=== PATIENT | female | born 1930 | race Caucasian/White ===

== ENCOUNTER → 2018-02-04 07:35 | Outpatient (CLI) | payer MEDICARE, OTHER | END | disposition home or self-care (01) | LOC: D.MRI 07:35 | DX: R05 Cough (principal) ==

== ENCOUNTER → 2018-10-02 09:09 | Outpatient (CLI) | payer MEDICARE, OTHER ==
--- NOTE | 2018-10-07 11:18 | ST ---
PATIENT:JITEDNRA BRUMFIELD MEDICAL RECORD: [id number] SEX: F LOCATION:[facility] ORDER #: ADMISSION DATE: 10/02/18 AGE OF PATIENT: 87 REFERRING PHYSICIAN: INTERPRETING PHYSICIAN: WALTER HIRSCH MD DATE OF SERVICE: 10/02/2018 PROCEDURE: Nuclear stress test. INDICATION: Angina. Family history of coronary artery disease, tachycardia, no past cardiac history. The patient was exercised on standard Lexiscan protocol with 31 mCi of sestamibi injected at peak stress, 10 mCi used previously for rest images. FINDINGS: Gated SPECT reveals a preserved ejection fraction at 58%. However, there is decreased thickening and brightening throughout the anteroapical segment and there is mild LV dilatation. SPECT imaging Cardiolite was used as myocardial perfusion agent. There is a large fixed perfusion defect anteroapically compatible with a previous anteroapical myocardial infarction. The remaining segments are with homogeneous uptake at rest and stress. OVERALL IMPRESSION: This is an abnormal nuclear stress test. A large area of fixed perfusion defect anteroapically compatible with previous anteroapical myocardial infarction in this patient with ongoing symptomatology and no cardiac history. Current scan suggests presence of hemodynamically significant coronary artery disease as well as a previous myocardial infarction. TRANSINT:[id number] Voice Confirmation ID: [id number] DOCUMENT ID: [id number] WALTER HIRSCH MD at 1118 CC: [id number] DICTATION DATE: 10/03/18 1418 INSURANCE CLAIMS REPRESENTATIVE: 10/03/18 2352 DEP CLI 10/02/[address] [address]
== END | disposition home or self-care (01) ==
LOC: D.HCCARDIO 09:09
DX: R07.9 Chest pain, unspecified (principal)

== ENCOUNTER 2018-10-14 07:59 | Outpatient (CLI) | payer MEDICARE, OTHER ==
[~2018-10-14] VITALS: Ht 165.1 cm; Wt 47.7 kg
--- NOTE | ~2018-10-14 | HEMODYNAMI ---
PATIENT:JITENDRA BRUMFIELD MEDICAL RECORD: [id number] : 34 LOCATION:[facility] ADMISSION DATE: 10/14/18 Generatedon:10/14/20189:45 Patient name: JITENDRA BRUMFIELD Patient #: [id number] SSN: : [id number] Date of study: 10/14/2018 Page: Of Hemodynamic Procedure Report Patient Data Patient Demographics Procedure consent was obtained First Name: JITENDRA Gender: Female Last Name: OCTAVIANO : 1930 Patient #: [id number] Age: 87 year(s) Race: Unknown Additional ID: [id number] Contact details Address: [address] [place] [address] State: [place] City: [facility] Zip code: [address] Admission Admission Data Admission Date: 10/14/2018 Admission Time: 7:59 Procedure Procedure Types Cath Procedure Diagnostic Procedure LHC LHC w/Coronaries FFR/IVUS Intra-Coronary IVUS Initial Sedation Charges Moderate Sedation up to 15 minutes PCI Procedure Coronary Stent Coronary Stent Initial x2 Procedure Description Procedure Date Procedure Date: 10/14/2018 Procedure Start Time: 9:15 Procedure End Time: 9:40 Procedure Staff Name Function Jose Coulter MD Performing Physician Maki Weber RT Monitor Hector Hernández RT Scrub Mitchell Lucio RN Nurse Procedure Data Cath Procedure Fluoroscopy Diagnostic fluoroscopy Total fluoroscopy Time: 6.5 time: 6.5 min min Diagnostic fluoroscopy Total fluoroscopy dose: 523 dose: 523 mGy mGy Contrast Material Contrast Material Type Amount (ml) Isovue 300 121 Entry Location Entry Primary Successful Side Size Upsize Upsize Entry Closure Anaya ccessful Closure Location (Fr) 1 (Fr) 2 (Fr) Remarks Device Remarks Radial Right 6 Fr Mechanical artery Short Compression Femoral Right 5 Fr 6 Fr Exoseal artery Short Estimated blood loss: 5 ml Diagnostic catheters Device Type Used For End Catheter Placement DIAGNOSTIC [place] 110cm 5 Multi-vessel Fr catheter ([id number]) Angiography Procedure Complications No complications Procedure Medications Medication Administration Route Dosage 0.9% NaCl I.V. 100 ml/hr Oxygen etCO2 Nasal cannula 2 l/min Heparin Flush Bag added to field 2 bags (1000units/500ml NS) Lidocaine 2% added to field 20 Radial Cocktail added to field 1 syringe (Verapomil 2mg/Nitro 400mcg/Heparin 1500units) Versed I.V. 1 mg Fentanyl I.V. 50 mcg Benadryl I.V. 50 mg Radial Cocktail I.A. 1 syringe (Verapomil 2mg/Nitro 400mcg/Heparin 1500units) Heparin Bolus I.V. 4000 units Integrilin (Bolus I.V. 4.5 ml 2mg/ml) Integrilin (Bolus wasted 5.5 ml 2mg/ml) Plavix P.O. 600 mg Hemodynamics Rest Heart Rate: 76 (bpm) Pressure Samples Time Site Value (mmHg) Purpose Heart Use Rate(bpm) 9:20 LV 76/25,24 Snapshot 90 Snapshots Pre Cath Intra NCS Post Cath Vital Signs Time Heart Resp SPO2 etCO2 NIBP (mmHg) Rhythm Pain Sedation Rate (ipm) (%) (mmHg) Status Level (bpm) 9:11:09 74 14 92 0 133/65(101) NSR 0 (11) 10(A) , No pain 9:15:22 78 14 89 0 123/65(102) NSR 0 (11) 10(A) , No pain 9:19:31 83 13 95 0 112/62(79) NSR 0 (11) 10(A) , No pain 9:23:39 80 13 95 0 115/55(85) NSR 0 (11) 10(A) , No pain 9:27:49 76 12 96 0 120/52(89) NSR 0 (11) 9(A) , No pain 9:32:01 76 12 96 0 122/53(100) NSR 0 (11) 9(A) , No pain 9:36:11 79 12 96 0 121/61(93) NSR 0 (11) 9(A) , No pain 9:40:19 80 15 97 0 128/64(100) NSR 0 (11) 10(A) , No pain Medications Time Medication Route Dose Verified Delivered Reason Note s Effectiveness by by 9:12:52 Benadryl I.V. 50 mg Mitchell Mitchell Per physician Naveed Lucio RN RN 9:14:35 Versed I.V. 1 mg Mitchell Mitchell for sedation Naveed Lucio RN RN 9:14:44 Fentanyl I.V. 50 mcg Mitchell Mitchell for sedation Naveed Lucio RN RN 9:16:03 0.9% NaCl I.V. 100 Mitchell Mitchell Per physician ml/hr Naveed Lucio RN RN 9:16:12 Radial Cocktail I.A. 1 Mitchell Jose for (Verapomil syringe Naveed Coulter MD vasodilation 2mg/Nitro RN 400mcg/Heparin 1500units) 9:16:12 Oxygen etCO2 2 l/min Mitchell Mitchell for low 02 sats Nasal Naveed Lucio cannula RN RN 9:16:21 Heparin Flush added 2 bags Mitchell Mitchell for local Bag to Lorigan Lorleeanna anesthetic (1000units/500ml field RN RN NS) 9:16:31 Lidocaine 2% added 20ml Mitchell Mitchell for local to vial Lorigan Lorigan anesthetic RN RN 9:16:40 Radial Cocktail added 1 Mitchell Mitchell used for (Verapomil to syringe Lorigan Naveed procedure 2mg/Nitro field MOULTON RN 400mcg/Heparin 1500units) 9:27:24 Heparin Bolus I.V. 4000 Mitchell Mitchell for units Naveed Lucio anticoagulation RN RN 9:27:48 Integrilin I.V. 4.5 ml Mitchell Mitchell for (Bolus 2mg/ml) Naveed Lucio antiplatelet RN RN therapy 9:27:58 Integrilin wasted 5.5 ml Mitchell Mitchell to sharp's (Bolus 2mg/ml) Naveed Lucio RN RN 9:40:04 Plavix P.O. 600 mg Mitchell Mitchell for Naveed Lucio antiplatelet RN RN therapy Procedure Log Time Note 8:54:36 Diagnostic Cath Status : Elective 8:54:59 Mitchell Lucio RN sent for patient. Start room use. 8:55:00 Time tracking: Regular hours (M-F 7:00 - 5:00) 8:55:05 Plan of Care:Hemodynamics will remain stable., Cardiac rhythm will remain stable., Comfort level will be maintained., Respiratory function will remain adequate., Patient/ family verbilizes understanding of procedure., Procedure tolerated without complication., Recovers from procedure without complications.. 9:00:36 Patient received from Pre/Post Procedure Room to CCL 2 Alert and oriented. Tansferred to table in Supine position. 9:00:37 Warm blankets applied, and froylan hugger turned on for patient comfort. 9:00:37 Correct patient and procedure confirmed by team. 9:00:39 Signed procedure consent form obtained from patient. 9:00:39 ECG and BP/O2 sat monitors applied to patient. 9:09:56 Vital chart was started 9:09:57 Baseline sample Acquired. 9:10:01 Rhythm: sinus rhythm 9:10:03 Full Disclosure recording started 9:10:07 H&P Date Dictated: 10/14/2018 Within 30 days and on chart., H&P Addendum completed by physician on day of procedure. (MUST COMPLETE FOR ALL OUTPATIENTS). 9:10:08 Pre-procedure instructions explained to patient. 9:10:09 Pre-op teaching completed and patient verbalized understanding. 9:10:10 Family in waiting room. 9:10:11 Patient NPO since Midnight. 9:10:16 Is the patient allergic to Iodine/contrast media? No. 9:10:17 Was the patient premedicated? No 9:10:28 Is patient on blood thinner?No 9:10:38 Patient diabetic? No. 9:10:40 Previous problem with sedation/anesthesia? No ? 9:10:53 Snore? No 9:10:54 Sleep apnea? No 9:10:55 Deviated septum? No 9:11:00 Opens mouth fully? Yes 9:11:01 Sticks out tongue? Yes 9:11:04 Airway obstruction? No ? 9:11:15 Dentures? Yes partials; in tight 9:12:11 Pre procedure: right dorsailis pedis pulse 2+ Normal; easily identifiable; not easily obliterated 9:12:14 Pre procedure: left dorsailis pedis pulse 2+ Normal; easily identifiable; not easily obliterated 9:12:18 Patient pain scale 0/10 ?. 9:12:42 IV patent on arrival in left forearm with 0.9% NaCl at [facility]. 9:12:47 Lab results completed and on chart. 9:12:52 Benadryl 50 mg I.V. was administered by Mitchell Lucio RN; Per physician; 9:12:57 Right Radial & Right Groin area was prepped with chlora-prep and draped in sterile fashion 9:12:58 Alarms reviewed by R. N. 9:12:58 Sharps counted by scrub and verified by R.N. 9:13:01 Physician arrived 9:13:02 --------ALL STOP TIME OUT------ 9:13:03 Final Timeout: patient, procedure, and site verified with staff and physician. All members of the team are in agreement. 9:13:04 Right Radial & Right Groin site verified by team. 9:13:08 Fire Safety Assessment: A--An alcohol-based skin anteseptic being used preoperatively., C--Open oxygen or nitrous oxide is being used., D--An ESU, laser, or fiber-optic light is being used. 9:13:12 Physical assessment completed. ASA score P 2 - A patient with mild systemic disease as per Jose Coulter MD. 9:13:16 Sedation plan: IV Moderate Sedation Medication:Versed, Fentanyl 9:14:13 Use device set Radial Dx or PCI 9:14:14 ACIST Syringe (26566) opened to sterile field. 9:14:14 Medline Cath Pack ([id number]) opened to sterile field. 9:14:15 Bag Decanter (2002) opened to sterile field. 9:14:15 DIAGNOSTIC WIRE .035 260cm J wire (649470) opened to sterile field. 9:14:16 ACIST Hand Control (50447) opened to sterile field. 9:14:16 ACIST Manifold (45424) opened to sterile field. 9:14:17 Tegaderm 4 x 4 (1626W) opened to sterile field. 9:14:17 MBrace Wrist Support ([id number]) opened to sterile field. 9:14:19 SHEATH 6FR Slender (83-1060) opened to sterile field. 9:14:23 Procedure started. 9:14:35 Versed 1 mg I.V. was administered by Mitchell Lucio RN; for sedation; 9:14:44 Fentanyl 50 mcg I.V. was administered by Mitchell Lucio RN; for sedation; 9:15:27 Local anesthetic to right radial artery with Lidocaine 2% by Jose Coulter MD.INITIAL ACCESS ONLY 9:16:01 A 6 Fr Short sheath was inserted into the Right Radial artery 9:16:03 0.9% NaCl 100 ml/hr I.V. was administered by Mitchell Lucio RN; Per physician; 9:16:12 Radial Cocktail (Verapomil 2mg/Nitro 400mcg/Heparin 1500units) 1 syringe I.A. was administered by Jose Coulter MD; for vasodilation; 9:16:12 Oxygen 2 l/min etCO2 Nasal cannula was administered by Mitchell Lucio RN; for low 02 sats; 9:16:21 Heparin Flush Bag (1000units/500ml NS) 2 bags added to field was administered by Mitchell Lucio RN; for local anesthetic; 9:16:31 Lidocaine 2% 20ml vial added to field was administered by Mitchell Lucio RN; for local anesthetic; 9:16:40 Radial Cocktail (Verapomil 2mg/Nitro 400mcg/Heparin 1500units) 1 syringe added to field was administered by Mitchell Lucio RN; used for procedure; 9:17:05 A DIAGNOSTIC [place] 110cm 5 Fr catheter (875058) was advanced over the wire and used for Multi-vessel Angiography. 9:18:40 Catheter removed. 9:18:46 Local anesthetic to right femoral artery with Lidocaine 2% by Jose Coulter MD.ADDITIONAL ACCESS 9:19:04 SHEATH 5FR [place] (FWQ989) opened to sterile field. 9:19:05 DIAGNOSTIC Multipack 5Fr catheter set (XL4304) opened to sterile field. 9:19:19 A 5 Fr sheath was inserted into the Right Femoral artery 9:19:33 5 Fr pigtail guide catheter was inserted over the wire 9:21:15 Catheter removed. 9:21:43 5 Fr jl 4 guide catheter was inserted over the wire 9:21:50 LCA angiography performed. 9:21:53 Injector settings: Ml/sec: 3, Volume: 6, 9:22:17 Catheter removed. 9:22:26 5 Fr 3drc guide catheter was inserted over the wire 9:22:49 RCA angiography performed. 9:22:53 Injector settings: Ml/sec: 3, Volume: 6, 9:22:55 Catheter removed. 9:22:56 Proceeding to intervention. 9:23:08 SHEATH 6FR [place] (DCG469) opened to sterile field. 9:23:09 INFLATOR Merit JhonathanCompak (CG8829) opened to sterile field. 9:23:42 CHOICE PT Extra Support 182cm wire ([id number]) opened to sterile field. 9:23:43 GUIDE 6FR 3DRC SH catheter ([id number]) opened to sterile field. 9:23:44 [place] [employer] IVUS Catheter (87285R) opened to sterile field. 9:23:59 Sheath upsized to a 6 Fr Short. 9:24:07 6 Fr 3drc sh guide catheter was inserted over the wire 9:24:13 choice pt wire advanced. 9:26:01 Wire advanced across lesion. 9:26:03 IVUS catheter advanced over wire. 9:27:24 Heparin Bolus 4000 units I.V. was administered by Mitchell Lucoi RN; for anticoagulation; 9:27:48 Integrilin (Bolus 2mg/ml) 4.5 ml I.V. was administered by Mitchell Lucio RN; for antiplatelet therapy; 9::58 Integrilin (Bolus 2mg/ml) 5.5 ml wasted was administered by Mitchell Lucio RN; to sharp's; 9:29:50 IVUS pass to RCA lesion performed. 9:29:51 IVUS catheter removed over wire. 9:30:18 Place stent Inflation Number: 1 A GERTRUDE RX 3.0 x 38 stent ([id number]) was prepped and advanced across the Mid RCA. The stent was deployed at 13 CLAUDIA for 0:10 (min:sec). 9:30:48 Stent catheter was removed intact over wire. 9:30:50 Wire removed. 9:30:51 Guide catheter removed. 9:30:59 GUIDE 6FR XBLAD 3.5 catheter ([id number]) opened to sterile field. 9:31:09 6 Fr xblad 3.5 guide catheter was inserted over the wire 9:31:33 choice pt wire advanced. 9:31:35 Wire advanced across lesion. 9:34:09 Place stent Inflation Number: 1 A GERTRUDE RX 2.25 x 38 stent ([id number]) was prepped and advanced across the Mid LAD. The stent was deployed at 13 CLAUDIA for 0:10 (min:sec). 9:35:02 Stent catheter was removed intact over wire. 9:36:21 Place stent Inflation Number: 2 A GERTRUDE RX 2.5 x 15 stent ([id number]) was prepped and advanced across the Mid LAD. The stent was deployed at 15 CLAUDIA for 0:10 (min:sec). 9:37:22 Stent catheter was removed intact over wire. 9:37:22 Wire removed. 9:37:23 Guide catheter removed. 9:37:38 EXOSEAL 6Fr (EX600) opened to sterile field. 9:37:53 Sheath removed intact; hemostasis achieved with Exoseal to the Right Femoral artery. 9:37:56 Procedure ended.(Physican Out) 9:38:25 Sheath removed intact; hemostasis achieved with Mechanical Compression to the Right Radial artery. 9:38:34 Fluoroscopy time 06.50 minutes. 9:38:46 Fluoroscopy dose: 523 mGy 9:38:46 Flurop Dose total: 523 9:38:49 Contrast amount:Isovue 300 121ml. 9:38:50 Sharps counted by scrub and verified by R.N. 9:38:54 TR band inflated with 10cc of air. 9:38:55 Insertion/operative site no bleeding no hematoma. 9:38:59 Post-op/insertion site Right Femoral artery dressed using a 4 x 4 and Tegaderm. 9:39:04 Post right radial artery:stable 9:39:05 Post Procedure Pulses reassessed and unchanged 9:39:08 Post procedure rhythm: unchanged. 9:39:11 Estimated blood loss: 5 ml 9:39:12 Post procedure instruction explained to patient.Patient verbalizes understanding. 9:39:13 Patient needs reinforcement of post procedure teaching. 9:39:46 Procedure type changed to Cath procedure, Diagnostic procedure, LHC, C w/Coronaries, FFR/IVUS, Intra-Coronary IVUS Initial, Sedation Charges, Moderate Sedation up to 15 minutes, PCI procedure, Coronary Stent, Coronary Stent Initial x2 9:39:49 Procedure and supply charges have been captured, reviewed, submitted and are correct. 9:39:53 Procedure Complication : No complications 9:39:55 Vital chart was stopped 9:39:56 See physician's report for complete and final results. 9:40:00 Report given to Pre/Post Procedure Room. 9:40:03 Patient transfered to Pre/Post Procedure Room with Stretcher. 9:40:04 Plavix 600 mg P.O. was administered by Mitchell Lucio RN; for antiplatelet therapy; 9:40:05 Procedure ended. 9:40:05 Full Disclosure recording stopped 9:40:14 ACC-PCI Only Patient was given prescriptions, or instructed by Jose Coulter MD to start/continue the following medications upon discharge: Plavix 9:40:15 End room use (Document Last) 9:41:41 TR BAND Standard (VLM38UBE) opened to sterile field. Intervention Summary Intervention Notes Time ActionType Lesion and Equipment Used Action# Pressure Duration Attributes 9:30:18 Place stent Mid RCA GERTRUDE RX 3.0 x 1 13 00:10 38 stent ([id number]) 9:34:09 Place stent Mid LAD GERTRUDE RX 2.25 x 1 13 00:10 38 stent ([id number]) 9:36:21 Place stent Mid LAD GERTRUDE RX 2.5 x 2 15 00:10 15 stent ([id number]) Device Usage Item Name Manufacture Quantity Catalog Number [facility] Part Current M inimal Lot# / Charge Number Stock Stock Serial# Code ACIST Syringe Acist 1 98356 704434 474855 283824 2 0 (33888) Medical Systems Inc Medline Cath Medline 1 [id number] 661197 80875 815272 5 Pack ([id number]) Bag Decanter Microtek 1 2001S 917846 70194 902091 5 (2001S) Medical Inc. DIAGNOSTIC St [place] 1 725817 986642 630921 728054 3 0 WIRE .035 260cm J wire (833605) ACIST Hand Acist 1 21864 920565 158005 945546 5 Control Medical (77136) Systems Inc ACIST Manifold Acist 1 96755 895200 019322 613004 5 (84175) Medical Systems Inc Tegaderm 4 x 4 3M 1 1626W 257153 779927 631989 5 (1626W) MBrace Wrist Advanced 1 140-0250-00 477152 47149 548586 5 Support Vascular (801862503) Dynamics SHEATH 6FR Terumo 1 [id number] 192399 176208 460001 5 Slender (80-1060) DIAGNOSTIC Terumo 1 40-0203 080672 566685 746189 5 [place] 110cm 5 Fr catheter (801469) SHEATH 5FR Terumo 1 TLH628 707704 866181 656069 5 [place] (JCE240) DIAGNOSTIC Cardinal 1 KC7774 894278 84968 677657 3 0 Multipack 5Fr Health catheter set (AT1310) SHEATH 6FR Terumo 1 DAS576 080700 497905 738517 4 0 [place] (VAK380) INFLATOR Merit Merit 1 EP0967 759663 511393 919811 1 5 [employer] (JC5270) CHOICE PT [place] 1 [id number] 841729 722420 694049 5 Extra Support Scientific 182cm wire (3993282O1) GUIDE 6FR 3DRC Medtronic 1 [id number] 754264 595668 665416 1 SH catheter ([id number]) [place] 1 48614C 322492 899672 588067 8 [employer] IVUS Catheter (06406T) GERTRUDE RX 3.0 x Medtronic 1 [id number] 688939 0584659 194472 5 [id number] 38 stent ([id number]) GUIDE 6FR Cardinal 1 [id number] 824140 799759 845646 1 0 XBLAD 3.5 Health catheter (82555945) GERTRUDE RX 2.25 x Medtronic 1 [id number] 129169 1637180 792446 5 [id number] 38 stent ([id number]) GERTRUDE RX 2.5 x Medtronic 1 [id number] 577498 9525122 156243 5 [id number] 15 stent ([id number]) EXOSEAL 6Fr Cardinal 1 EX600 570137 760782 343455 1 0 (EX600) Health TR BAND Terumo 1 [id number] 993277 005078 362147 4 0 Standard ([id number]) Signature Audit [place] Stage Time Signature Unsigned Intra-Procedure 10/14/2018 Maki Weber 9:45:42 AM RT(R) Signatures Monitor : Maki Weber RT Signature : Date : Time : [place] [id number] [place] [address]
[2018-10-14 08:23] VITALS: BP 139/59; Ht 165.1 cm; Wt 47.7 kg
[2018-10-14 08:40] LABS: BASOPHILS 0.9 % (0-2); EOSINOPHILS 3.5 % (0-7); HEMATOCRIT 40.9 % (36.0-48.0); HEMOGLOBIN 13.8 g/dL (12-16); IMMATURE GRANULOCYTES 0.5 % (0-5); LYMPHOCYTES 25.1 % (15-50); MCH 31.9 pg (26.0-34.0); MCHC 33.7 g/dL (31.0-37.0); MCV 94.5 fL (80.0-100.0); MEAN PLATELET VOLUME 10.5 fL (7.4-10.4); MONOCYTES 12.6 % (2-11); NEUTROPHILS 57.4 % (40-80); PLATELET COUNT 299 10x3/uL (130-400); RBC 4.33 10x6/uL (4.00-5.40); RDW 12.8 % (11.5-14.5); WBC 7.5 10x3/uL (4.8-10.8)
[2018-10-14 08:44] LABS: ANION GAP 15.9 mmol/L (8-16); CALCIUM 8.9 mg/dL (8.5-10.1); CREATININE - SERUM 1.1 mg/dL (0.6-1.3); POTASSIUM - SERUM 3.9 mmol/L (3.5-5.1)
--- NOTE | 2018-10-14 10:17 | NUR ---
PT ALERT, DENIES ANY C/O. 6 FR EXOSEAL IS CDI TO RIGHT GROIN, PEDAL PULSES PALPABLE. TR BAND IS CDI TO RIGHT WRIST, HAND IS WARM AND CAP REFILL IS BRISK. NSR, DENIES ANY C/O CHEST PAIN. ELIZABETH SIPS OF SODA WITH NO NAUSEA. HOB IS FLAT, FAMILY AT BEDSIDE, CALL LIGHT IN REACH.
[2018-10-14] MEDS ORDERED: PLAVIX75 MG PO (10:29)
[2018-10-14] MEDS ORDERED: BAYER CHEWABLE81 MG PO (10:29)
--- NOTE | 2018-10-14 10:39 | NUR ---
PT ALERT, DENIES C/O. DRESSINGS CDI, HOB IS FLAT, PULSES PALPABLE. NSR RATE 69. BP IS 120/56. FAMILY AT BEDSIDE.
--- NOTE | 2018-10-14 10:52 | NUR ---
PT DENIES ANY C/O. TR BAND IS CDI, HAND IS WARM, CAP REFILL IS BRISK. DRESSING TO RIGHT GROIN IS CDI, PEDAL PULSES PALPABLE. HOB IS FLAT, PT DENIES NEEDS AT THIS TIME. FAMILY AT BEDSIDE, CALL LIGHT IN REACH.
--- NOTE | 2018-10-14 11:21 | NUR ---
TR BAND AND EXOSEAL DRESSING aRE CDI, PULSES PALPABLE. HOB IS FLAT, VSS, PT DENIES NEEDS AT THIS TIME.
--- NOTE | 2018-10-14 12:23 | NUR ---
PT IS ALERT, FAMILY AT BEDSIDE. DRESSING TO RIGHT GROIN IS CDI, AREA IS SOFT AND NONTENDER. PEDAL PULSES PALPABLE. TR BAND IS CDI TO RIGHT WRIST WITH NO BLEEDING OR HEMATOMA NOTED. NSR, RATE IS 68, BP IS 117/54. HOB IS FLAT, PT DENIES ANY NEEDS AT THIS TIME.
--- NOTE | 2018-10-14 12:55 | NUR ---
HOB ELEVATED AND SANDWICH SERVED. DRESSING TO RIGHT GROIN IS CDI, AREA IS SOFT AND NONTENDER. PEDAL PULSES PALPABLE. 3 CC OF AIR WEANED FROM TR BAND.
--- NOTE | 2018-10-14 13:06 | NUR ---
3 CCOF AIR WEANED FROM TR BAND WITH NO BLEEDING NOTED. FINGERS WRAM AND CAP REFILL IS BRISK. DRESSING REMAINS CDI TO RIGHT GROIN, HOB ELEVATED. PT DENIES ANY C/O. ELIZABETH SANDWICH WITH NO C/O NAUSEA.
--- NOTE | 2018-10-14 13:27 | NUR ---
1320 PT HAS SMALL HEMATOMA PROXIMAL TO CATH SITE. AIR REINSTILLED TO TR BAND AND AREA MARKED, WILL CONTINUE TO MONITOR. FINGERS WARM AND CAP REFILL IS BRISK. DRESSING TO RIGHT GROIN IS CDI, AREA IS SOFT AND NONTENDER. PT SITTING UP IN BED WITH FRIEND AT BEDSIDE, DENIES ANY C/O.
--- NOTE | 2018-10-14 13:55 | NUR ---
NO INCREASE IN HEMATOMA NOTED. 2 CC OF AIR WEANED FROM TR BAND WITH NO BLEEDING NOTED. FINGERS WARM AND CAP REFILL IS BRISK. PT DENIES ANY NEEDS AT THIS TIME.
--- NOTE | 2018-10-14 14:31 | NUR ---
1410 2 CC OF AIR WEANED WITH NO BLEEDING OR INCREASE IN HEMATOMA NOTED. WILL CONTINUE TO MONITOR. 1425 3 CC OF AIR WEANED FROM TR BAND WTIH NO HEMATOMA NOTED. FINGERS WARM AND CAP REFILL IS BRISK.
--- NOTE | 2018-10-14 15:07 | NUR ---
1435 ALL REMAINING AIR WEANED FROM TR BAND WITH NO BLEEDING OR INCREASE IN HEMATOMA NOTED. FINGERS WARM, PULSE PALPABLE. 1445 TR BAND REMOVED AND 2X2 TEGADERM PLACED TO SITE. WRIST IMMOBILIZER IN PLACE. FINGERS WARM AND PULSE PALPABLE. PT DENIES ANY C/O. DC INSTRUCTIONS HAVE BEEN REVIEWED WITH PT AND FRIEND WHO VERBALIZE UNDERSTANDING. PT AND FRIEND VERBALIZE UNDERSTANDING OF FILLING PLAVIX PRESCRITION AND STARTING THIS MEDICATION TOMORROW. 1500 ASSISTED PT WITH DRESSING FOR DC TO HOME. DRESSING REMAINS CDI TO RIGHT WRIST AND AREA MARKED FROM EARLIER SMALL HEMATOMA REMAINS UNCHANGED, NO NEW BLEEDING NOTED. WRIST IMMOBILIZER IN PLACE. DRESSING TO RIGHT GROIN REMAINS CDI WITH NO BLEEDING OR HEMATOMA NOTED. PT HAS USED BEDPAN AND VOIDED APPROX 700 CC CLEAR YELLOW URINE. 1505 PT ESCORTED TO PRIVATE AUTO VIA WC BY NURSE WITH FRIEND DRIVING HER HOME. PT IS ALERT AND DENIES ANY C/O AT TIME OF DC. HAS ALL PERSONAL BELONGINGS AND DC INSTRUCTIONS AT TIME OF DC.
--- NOTE | 2018-10-16 11:54 | OP ---
PATIENT NAME: JITENDRA BRUMFIELD MEDICAL RECORD: [id number] :34 LOCATION:D[facility] ADMISSION DATE: SURGEON: WALTER HIRSCH MD DATE OF OPERATION: 10/14/2018 PROCEDURES: 1. PTCA and stent of RCA. 2. PTCA and stent of LAD. 3. Intravascular ultrasound. 4. Left heart catheterization. 5. Selective coronary angiography. 6. Left ventriculogram. INDICATIONS: Angina and coronary artery disease. PROCEDURE IN DETAIL: After informed consent was obtained and after a detailed explanation of the risks, benefits as well as alternative therapies, the patient elected to proceed with angiogram and angioplasty. The right femoral area was prepped and draped in normal sterile fashion. Right femoral artery was cannulated via modified Seldinger technique with placement of 6-German sheath. All catheters exchanged through this sheath. FINDINGS: Left ventriculogram was performed in standard 30-degree PERRY view, reveals good cardiac wall motion throughout all segments. Overall ejection fraction estimated at 70%. SELECTIVE CORONARY ANGIOGRAPHY: 1. Left main is with no significant angiographic disease. 2. Left anterior descending has a long area with multiple stenosis greater than 80%. 3. Left circumflex has mild irregularities, but no flow-limiting stenosis. 4. Right coronary has greater than 80% stenosis throughout the mid vessel confirmed by intravascular ultrasound. PTCA AND STENT OF THE RCA: The stent used 3.0 x 38-mm Weir. Result was 0% residual stenosis. PTCA AND STENT OF THE LAD: Stents used were 2.25 x 38 and 2.5 x 15, both Wayne stents. Result was 0% residual stenosis. OVERALL IMPRESSION: Successful PTCA and stent of the RCA and LAD, both going from 80% initial stenosis to 0% residual. TRANSINT:[id number] Voice Confirmation ID: [id number] DOCUMENT ID: [id number] WALTER HIRSCH MD at 1154 CC: [id number] DICTATION DATE: 10/14/18940 MOLD SHOP SUPERVISOR: 10/14/18 1103 DEP CLI 10/14/[address] [facility] [address] [place] [address]
== END 2018-10-14 15:05 | disposition home or self-care (01) ==
LOC: D.CATH 07:59
PROVIDERS: ATTEND Internal Medicine Interventional Cardiology
DX: I25.119 Atherosclerotic heart disease of native coronary artery with unspecified angina pectoris (principal); Z01.812 Encounter for preprocedural laboratory examination
CPT/HCPCS: 92978; 93458; C9600 ×2

== ENCOUNTER → 2019-01-22 14:30 | Outpatient (CLI) | payer MEDICARE, OTHER ==
[2018-10-14 08:23] VITALS: BMI 17.5
[~2019-01-22 14:30] MED LIST: BAYER CHEWABLE81 MG PO; PLAVIX75 MG PO
--- NOTE | 2019-01-23 13:44 | EC ---
PATIENT:JITENDRA BRUMFIELD DATE OF SERVICE: 01/22/19 SEX: F MEDICAL RECORD: [id number] DATE OF : 34 [facility] AGE OF PATIENT: 88 ADMISSION DATE: 01/22/19 REFERRING PHYSICIAN: INTERPRETING PHYSICIAN: WALTER COULTER MD ECHOCARDIOGRAM REPORT ECHO CHARGES 4 ECHO COMPLETE Date: 01/22/19 CLINICAL DIAGNOSIS: PALPITATIONS/SOB H/O CAD ECHOCARDIOGRAPHIC MEASUREMENTS (adult normal given) AC root (d.<3.7cm) 2.8 cm LV Septum d (<1.2 cm> 0.8 cm Valve Excursion 1.9 cm LV Septum (systole) 1.1 cm Left Atria (s.<4.0cm> 2.9 cm LVPW d(<1.2cm) 0.8 cm RV (d.<2.3cm) 1.7 cm LVPW (sytole) 1.5 cm LV diastole(<5.6CM) 4.6 cm MV E-F(>70mm/sec) cm LV systole 2.3 cm LVOT Diameter 1.6 cm MV exc.(>10mm) cm Est.ejection fraction (50-75%) % DOPPLER: LVIT cm/sec A 64.0 cm/sec E 56.0 cm/sec LA cm/sec RVSP 33.0 mmHg LVOT 94.0 cm/sec AOP1/2T m/s Asc. Ao 102 cm/sec RVOT 59.0 cm/sec RA cm/sec PA 72.0 cm/sec AV Gradient Peak 4.2 mmHg AV Mean 2.0 mmHg AV Area 1.6 cm MV Gradient Peak 2.3 mmHg MV Mean 0.66 mmHg MV Area cm COMMENTS: OP - HC Bean Snapper: Nevin BLOOM IRENE Ethnology Teacher: 1 Dr. Coulter TAPE# PACS Pericardial Effusion N DATE OF SERVICE: 01/22/2019 PROCEDURE: Echocardiogram. FINDINGS: 1. Left ventricular chamber size is within normal limits. Left ventricular systolic function is normal. Overall ejection fraction estimated at 55%. 2. Left atrium, right atrium, and right ventricular chamber sizes within normal limits. 3. Valvular structures have normal structure and motion. ECHOCARDIOGRAM REPORT [id number] JITENDRA BRUMFIELD 4. Doppler interrogation reveals mild mitral regurgitation, mild tricuspid regurgitation, no other valvular insufficiency or stenosis. Pulmonary systolic pressure is estimated 33 mmHg. 5. No evidence of pericardial effusion or left ventricular thrombus. TRANSINT:[id number] Voice Confirmation ID: [id number] DOCUMENT ID: [id number] WALTER COULTER MD at 1344 CC: [id number] DICTATION DATE: 01/23/19 1100 FIREWALL ENGINEER: 01/23/19 1117 DEP CLI 01/22/19 [place] [id number] [place] [id number]
== END | disposition home or self-care (01) ==
LOC: D.HCCARDIO 14:30
PROVIDERS: ATTEND Internal Medicine Interventional Cardiology
DX: I25.10 Atherosclerotic heart disease of native coronary artery without angina pectoris (principal)